=== PATIENT | female | born 1970 | race Hispanic/Latino ===

== ENCOUNTER 2017-07-16 00:45 | Emergency (ER) | payer SELFPAY | END 2017-07-16 02:38 | disposition home or self-care (01) | LOC: ERS 00:45 | DX: J11.1 Influenza due to unidentified influenza virus with other respiratory manifestations (principal) | CPT/HCPCS: 99283 ==

== ENCOUNTER 2017-07-18 16:45 | Emergency (ER) | payer SELFPAY, OTHER | END 2017-07-18 19:00 | disposition home or self-care (01) | LOC: ERS 16:45 | DX: J06.9 Acute upper respiratory infection, unspecified (principal) | CPT/HCPCS: 87804; 99283 ==

== ENCOUNTER 2017-08-12 10:27 | Emergency (ER) | payer OTHER, SELFPAY ==
[2017-08-12] MEDS ORDERED: Acetaminophen 500 MG TAB ONE (11:04)
--- NOTE | 2017-08-12 11:39 | RAD ---
TWO VIEW CHEST: HISTORY: Fall with injury to chest. Injury to shoulder and hip. FINDINGS: The lungs are clear. The heart and mediastinum appear unremarkable. The bony thorax appears intact. IMPRESSION: No acute finding. POS: [facility]
--- NOTE | 2017-08-12 11:40 | RAD ---
RIGHT WRIST THREE VIEWS: HISTORY: Fall with injury to wrist. FINDINGS: The carpals appear normally aligned. No evidence of fracture identified. IMPRESSION: No acute finding. POS: [facility]
--- NOTE | 2017-08-12 11:44 | RAD ---
LEFT SHOULDER THREE VIEWS: HISTORY: Fall. COMPARISON: None. FINDINGS: No acute fracture or malalignment. The visualized ribs are unremarkable. There appears to be an os acromiale, type B. 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 MRI may be helpful. POS: [facility]
--- NOTE | 2017-08-12 11:45 | RAD ---
TWO VIEWS OF THE LEFT HIP: 08/12/2017 HISTORY: The patient slipped and fell on the floor, landing on the left side. The patient has left hip and sh oulder pain and wrist pain. FINDINGS: No obvious fracture is visualized. There is no evidence of a dislocation or other osseous abnormalit y involving the left hip. IMPRESSION: No acute fracture visualized. If the patient continues to have pain, follow-up imaging is recommende d. POS: [facility]
[2017-08-12] MEDS ORDERED: Ketorolac Tromethamine 60 MG/2 ML VIAL ONE (11:46)
--- NOTE | 2017-08-12 11:46 | RAD ---
AP AND LATERAL AND OBLIQUE VIEWS OF THE RIGHT HAND TECHNIQUE: AP, lateral, and oblique views of the right hand are obtained. HISTORY: Fall with right hand and wrist pain. FINDINGS: The right hand is unremarkable. No evidence of right hand fractures, subluxations, or bony lesions s een. IMPRESSION: Normal three views of right hand. POS: [facility]
== END 2017-08-12 12:05 | disposition home or self-care (01) ==
LOC: SCSER 10:27
DX: S79.912A Unspecified injury of left hip, initial encounter (principal); S49.92XA Unspecified injury of left shoulder and upper arm, initial encounter; M25.531 Pain in right wrist; M79.641 Pain in right hand; W01.0XXA Fall on same level from slipping, tripping and stumbling without subsequent striking against object, initial encounter
CPT/HCPCS: 29125; 71046; 96372; J1885

== ENCOUNTER 2017-08-14 07:25 | Outpatient (CLI) | payer SELFPAY ==
--- NOTE | 2017-08-15 14:05 | MMO ---
BILATERAL SCREENING MAMMOGRAM: Date: 08/14/17 HISTORY: Screening. COMPARISON: Mammogram from 2017. TECHNIQUE: Bilateral screening CC and MLO mammograms. This patient's mammogram was interpreted with the assistance of computer-aided detection. FINDINGS: The breasts are heterogeneously dense, which may obscure small masses. There are benign calcification s within both breasts. No suspicious mass, architectural distortion, or microcalcifications. IMPRESSION: BIRADS 2: Benign Finding(s) Continued annual mammographic screening is recommended. POS: [facility]
== END 2017-08-14 07:26 | disposition home or self-care (01) ==
LOC: SCSMAMMO 07:25
PROVIDERS: ATTEND Family Medicine
DX: Z12.31 Encounter for screening mammogram for malignant neoplasm of breast (principal); Z00.00 Encounter for general adult medical examination without abnormal findings
CPT/HCPCS: 77067

== ENCOUNTER 2018-05-18 07:29 | Emergency (ER) | payer SELFPAY ==
--- NOTE | 2018-05-18 08:04 | RAD ---
PA AND LATERAL CHEST: INDICATIONS: Cough. COMPARISON: 08/12/2017 FINDINGS/IMPRESSION: No air space consolidation is evident, to suggest pneumonia. Heart size and pulmonary vasculature ar e within normal limits. There is mild prominence of the thoracic spine. POS: [facility]
== END 2018-05-18 10:50 | disposition home or self-care (01) ==
LOC: ERS 07:29
DX: J20.9 Acute bronchitis, unspecified (principal)
CPT/HCPCS: 71046; 87081; 87430

== ENCOUNTER 2019-03-27 09:29 | Outpatient (CLI) | payer OTHER ==
--- NOTE | 2019-03-27 10:48 | MRI ---
MRI Upper Ext Jt Lt WO Con History: S69.92 XD injury of left wrist subsequent encounter Comparison: None. Findings: Bones: There is no acute fracture or malalignment. Small subcortical cysts of the volar cor kurt scaphoid waist. Muscles: The muscle signal and bulk is normal. Tendons: Interstitial split tear of the extensor carpi ulnaris extending 3 cm proximal to the wrist j oint through the ulnar groove with reconstitution just proximal to the terminal insertion base of the fifth metacarpal. There is adjacent soft tissue swelling predominantly at the ulnar groove and at the wrist joint level. Subsheath does appear to be intact. Soft tissues: Unremarkable. Intrinsic ligaments: Intact Extrinsic ligaments: Intact Impression: High-grade tenosynovitis and interstitial tearing of the extensor carpi ulnaris centered near the ulnar groove and at level of the wrist. The tendon tear originates 3 cm proximal to the wrist joint and reconstitutes just proximal to the terminal insertion base of the fifth metacarpal.
== END 2019-03-27 09:30 | disposition home or self-care (01) ==
LOC: BICMRI 09:29
PROVIDERS: ATTEND Family Medicine
DX: S69.92XD Unspecified injury of left wrist, hand and finger(s), subsequent encounter (principal); S63.502A Unspecified sprain of left wrist, initial encounter; S66.912A Strain of unspecified muscle, fascia and tendon at wrist and hand level, left hand, initial encounter

== ENCOUNTER 2019-12-04 17:35 | Emergency (ER) | payer BC, OTHER ==
[2019-12-06 11:45] LABS: SARS-CoV-2 MS2 Positive; SARS-CoV-2 N Gene Positive; SARS-CoV-2 S Gene Positive; SARS-CoV-2 orf1ab Positive
== END 2019-12-04 18:52 | disposition home or self-care (01) ==
LOC: ERS 17:35
DX: U07.1 COVID-19 (principal)
CPT/HCPCS: 87635; 99283; U0003

== ENCOUNTER 2019-12-07 15:02 | Emergency (ER) | payer BC, OTHER ==
[2019-12-07] MEDS ORDERED: Ondansetron PF 4 MG/2 ML Vial ONE ×2 (15:48→17:15)
--- NOTE | 2019-12-07 15:57 | RAD ---
EXAM: Single view of the chest HISTORY: Covid positive with worsening symptoms of cough and ill feeling. COMPARISON: None FINDINGS: Single view of the chest shows a normal sized cardiomediastinal silhouette. There is a ques tionable retrocardiac opacity. The bones are unremarkable. IMPRESSION: Questionable retrocardiac atelectasis versus infiltrate.
[2019-12-07 16:10] LABS: #Basophils 0.1 thou/uL (0.0-0.2); #Lymphocytes 1.6 thou/uL (1.20-3.40); #Monocytes 0.2 thou/uL (0.11-0.59); #Neutrophils 2.7 thou/uL (1.40-6.50); %Basophils 1.4 % (0.0-1.0); %Eosinophils 0.4 % (0.0-10.0); %Monocytes 5.2 % (0.0-10.0); %Neutrophils 58.1 % (42.0-75.0); Hemoglobin 13.6 g/dL (12.0-16.0); Mean Corpuscular HGB CONC 33.9 g/dL (32.0-36.0); Mean Corpuscular Hemoglobin 30.3 pg (27.0-31.0); Mean Corpuscular Volume 89.3 fL (78.0-98.0); Mean Platelet Volume 9.9 fL (7.4-10.4); Platelet Count 224 thou/uL (130-400); RBC Distribution Width 12.7 % (11.5-14.5); Red Blood Cell (RBC) Count 4.48 mill/uL (4.20-5.40); White Blood Cell (WBC) Count 4.6 thou/uL (4.8-10.8)
[2019-12-07 16:23] LABS: ALT (SGPT) 46 U/L (8-55); AST (SGOT) 53 U/L (5-34); Albumin 4.5 g/dL (3.5-5.0); Alkaline Phosphatase 124 U/L (40-110); Anion Gap 13 mmol/L (10-20); BUN (Urea Nitrogen) 10 mg/dL (7.0-18.7); Bilirubin, Total 0.5 mg/dL (0.2-1.2); CK (CPK) 68 U/L (29-168); Calc. Creatinine Clearance 0 mL/min (70-130); Calcium 9.7 mg/dL (7.8-10.44); Carbon Dioxide 28 mmol/L (22-29); Chloride 104 mmol/L (98-107); Estimated GFR-MDRD Greater than 90; Globulin 3.9 g/dL (2.4-3.5); Glucose 101 mg/dL (70-105); Potassium 3.8 mmol/L (3.5-5.1); Protein, Total 8.4 g/dL (6.0-8.3); Sodium 141 mmol/L (136-145)
[2019-12-07 17:37] LABS: Bilirubin Negative (Negative); Blood, Urine Negative (Negative); Clarity Clear (Clear); Glucose, Urine (Dipstick) Normal (Negative); Leukocyte Negative Leu/uL (Negative); Nitrite Negative (Negative); Protein, Urine (Dipstick) Negative (Neg-Trace); Urobilinogen Normal mg/dL (Less than 2)
== END 2019-12-07 18:19 | disposition short-term general hospital (02) ==
LOC: ERS 15:02
DX: U07.1 COVID-19 (principal); R11.2 Nausea with vomiting, unspecified
CPT/HCPCS: 71045; 80053; 81003; 82550; 84484; 85025; 93005; 96361; 96374; 96376; J2405

== ENCOUNTER 2019-12-31 08:44 | Emergency (ER) | payer BC, OTHER ==
[2020-01-01 12:52] LABS: SARS-CoV-2 MS2 Positive; SARS-CoV-2 N Gene Positive; SARS-CoV-2 S Gene Positive; SARS-CoV-2 orf1ab Positive
== END 2019-12-31 09:20 | disposition home or self-care (01) ==
LOC: ERS 08:44
DX: U07.1 COVID-19 (principal)
CPT/HCPCS: 87635; 99283; U0003

== ENCOUNTER 2020-01-12 09:33 | Emergency (ER) | payer BC, OTHER ==
[2020-01-13 11:40] LABS: SARS-CoV-2 MS2 Positive; SARS-CoV-2 N Gene Negative; SARS-CoV-2 S Gene Negative; SARS-CoV-2 by NAA Not Detected (NotDetected); SARS-CoV-2 orf1ab Negative
== END 2020-01-12 10:21 | disposition home or self-care (01) ==
LOC: ERS 09:33
DX: Z20.828 Contact with and (suspected) exposure to other viral communicable diseases (principal)
CPT/HCPCS: 87635; 99283; U0003

== ENCOUNTER 2020-04-08 11:18 | Outpatient (CLI) | payer OTHER ==
--- NOTE | 2020-04-08 12:36 | MRI ---
EXAM: MRI Upper Ext Jt Rt WO Con DATE: 04/08/2020 11:26 AM INDICATION: History of right thumb sprain COMPARISON: None. FINDING: Motion artifact limits image detail on the exam. No definite bone marrow signal abnormality is seen just presence of fracture. There is unequal fat sa turation on the sagittal T2-weighted fat sat series involving the distal aspect of the thumb. The visualized collateral ligaments of the thumb MCP and IP joint appears within normal limits. There is very mild fluid seen filling the FPL tendon sheaths suspicious for changes of the FPL tenosynovitis. This extends from approximately the first CMC articulation through the level of the th umb MCP joint. The visualized hand musculature appears within normal limits. IMPRESSION:Mild FPL tenosynovitis.
== END 2020-04-08 11:19 | disposition home or self-care (01) ==
LOC: TBSIIMAG 11:18
PROVIDERS: ATTEND Family Medicine
DX: S63.681D Other sprain of right thumb, subsequent encounter (principal); M65.861 Other synovitis and tenosynovitis, right lower leg

== ENCOUNTER 2022-03-02 08:20 | Outpatient (CLI) | payer BC | END 2022-03-02 08:21 | disposition home or self-care (01) | LOC: BICMAMMO 08:20 | PROVIDERS: ATTEND Family Medicine | DX: Z12.31 Encounter for screening mammogram for malignant neoplasm of breast (principal) | CPT/HCPCS: 77063; 77067 ==

== ENCOUNTER 2023-03-19 12:05 | Outpatient (CLI) | payer BC | END 2023-03-19 12:06 | disposition home or self-care (01) | LOC: BICMAMMO 12:05 | PROVIDERS: ATTEND Family Medicine | DX: Z12.31 Encounter for screening mammogram for malignant neoplasm of breast (principal) | CPT/HCPCS: 77063; 77067 ==

== ENCOUNTER 2024-07-11 06:00 | Emergency (ER) | payer BC | END 2024-07-11 07:18 | disposition home or self-care (01) | LOC: ERS 06:00 | DX: B34.9 Viral infection, unspecified (principal) | CPT/HCPCS: 71046; 87428 ==

== ENCOUNTER 2024-07-13 03:22 | Emergency (ER) | payer BC | END 2024-07-13 06:23 | disposition home or self-care (01) | LOC: ERS 03:22 | DX: J10.1 Influenza due to other identified influenza virus with other respiratory manifestations (principal) | CPT/HCPCS: 87081; 87428; 87430; 99283 ==

== ENCOUNTER 2025-03-30 15:45 | Outpatient (CLI) | payer BC | END 2025-03-30 15:46 | disposition home or self-care (01) | LOC: BICRAD 15:45 | PROVIDERS: ATTEND Nurse Practitioner Family | DX: M25.561 Pain in right knee (principal); M17.11 Unilateral primary osteoarthritis, right knee ==